=== PATIENT | male | born 1975 | race Caucasian/White ===

== ENCOUNTER 2021-07-31 22:52 | Emergency (ER) | payer OTHER ==
[~2021-07-31] VITALS: Ht 185.4 cm; Wt 88.5 kg
[2021-08-01 00:10] VITALS: BP 127/86
[2021-08-01] MEDS ORDERED: TETANUS-DIPTH-ACEL PERTUSSIS 0.5ML SYR Tdap IM ONE (00:45)
[2021-08-01 01:12] LABS: Hepatitis B Surface Antibody Positive
== END 2021-08-01 01:48 | disposition home or self-care (01) ==
LOC: ER 22:52
DX: S60.512A Abrasion of left hand, initial encounter (principal); V49.9XXA Car occupant (driver) (passenger) injured in unspecified traffic accident, initial encounter; Y93.89 Activity, other specified; Y92.488 Other paved roadways as the place of occurrence of the external cause; Y99.8 Other external cause status
CPT/HCPCS: 36415; 86703; 86706; 86803; 87340; 90471; 90715